=== PATIENT | female | born 1985 | race Caucasian/White ===

== ENCOUNTER 2017-12-27 11:51 | Emergency (ER) | payer MEDICAID ==
[~2017-12-27] VITALS: Ht 152.4 cm; Wt 63.0 kg
[2017-12-27 11:59] VITALS: Ht 152.4 cm; Wt 63.0 kg
[2017-12-27 13:22] VITALS: BP 128/87
== END 2017-12-27 13:22 | disposition short-term general hospital (02) ==
LOC: ED 11:51
DX: O20.0 Threatened abortion (principal)